=== PATIENT | male | born 1955 | race Caucasian/White ===

== ENCOUNTER 2017-06-12 19:22 | Emergency (ER) | payer BC ==
[~2017-06-12] VITALS: Ht 182.9 cm; Wt 119.8 kg
[~2017-06-12 19:22] MED LIST: AUGMENTIN 875-1 EACH PO; NORCO 5-325 TA1 EACH PO; PREDNISONE20 MG PO; ZITHROMAX250 MG PO
[2017-06-12] MEDS ORDERED: NORCO 5-325 TA1 EACH PO (22:51)
== END 2017-06-12 23:04 | disposition home or self-care (01) ==
LOC: ED 19:22
DX: S22.32XA Fracture of one rib, left side, initial encounter for closed fracture (principal); Z87.891 Personal history of nicotine dependence; Z98.890 Other specified postprocedural states; Z79.899 Other long term (current) drug therapy; Z79.52 Long term (current) use of systemic steroids; W18.09XA Striking against other object with subsequent fall, initial encounter
CPT/HCPCS: 71020; 96372; 99283; J1885